=== PATIENT | male | born 1955 | race Caucasian/White ===

== ENCOUNTER 2024-05-09 07:40 | Day surgery (SDC) | payer MEDICARE, BC ==
[~2024-05-09] VITALS: Ht 175.3 cm; Wt 84.1 kg
[~2024-05-09 07:40] MED LIST: ALLERGY RELIEF10 M1 PO; BACTRIM 400-801 EACH PO; BACTRIM DS TAB1 EACH PO; FLUTICASONE P15.8 ML NS; HYDROCODON-ACE1 EA10 PO; IBLOOD GLUCOSE TEST STRIP 1 EA TEST VI PRN; IBUPROFEN200 M1; KEFLEX500 MG PO; KETOROLAC TROME10 MG PO; LACTATED RINGER'S 1,000 ML IV SCH; LIDOCAINE HCL 1% 5 ML SDV INJ ONE; MIDAZOLAM HCL 5 MG/5 ML VIAL IV PRN; OXYCODONE-ACET1 EAC1 PO; fentaNYL citrate 100 MCG/2 ML VIAL IV PRN
[2024-05-09 07:55] VITALS: BP 121/74
[2024-05-09] MEDS ORDERED: ADVAIR 250-501 EACH INH (08:00)
[2024-05-09] MEDS ORDERED: fentaNYL citrate 100 MCG/2 ML VIAL ONE (09:28)
[2024-05-09] MEDS ORDERED: MIDAZOLAM HCL 5 MG/5 ML VIAL ONE (09:28)
--- NOTE | 2024-05-09 10:27 | NUR ---
05/09/24 Hermann7 Lula Armijo 1017- PT ARRIVES TO THE PACU WITH A NATURAL AIRWAY ON 3L OF O2 VIA NC. BREATHING IS EVEN AND UNLABORED. ALL MONITORS PUT IN PLACE. ABDOMEN IS SOFT AND NONDISTENDED. VSS. LR IS INFUSING IN THE IV IN HIS R AC. PT IS LAYING ON HIS LEFT SIDE. PT HAS EYES OPEN. PT IS ORIENTED TO THE PACU. PT IS ENCOURAGED TO PASS GAS AND EDUCATED ABOUT THE PROCEDURE. PT DENIES PAIN AND NAUSEA. PT AMBROCIO FALLS BACK TO SLEEP. 1019- PT PASSING GAS OFF AND ON. PT IS RESTING WITH NO APPARENT DISTRESS.
[2024-05-09 11:04] VITALS: BP 107/68
--- NOTE | 2024-05-09 11:38 | OR ---
[facility] [address] [place] [address], [place] [address] Signed DATE OF OPERATION: 05/09/2024 SURGEON: Patrick Bobo MD PREOPERATIVE DIAGNOSIS: Colon screening. POSTOPERATIVE DIAGNOSES: 1. Sigmoid and left-sided diverticulosis. 2. Polyps x3. PROCEDURES: Total colonoscopy to cecum with cold morcellation polypectomy x3. ANESTHESIA: Intravenous sedation, fentanyl 100 mcg and Versed 5 mg. INDICATIONS FOR THE PROCEDURE: This 68-year-old white man is a patient of Dr. Nikolas Irene. He last underwent colonoscopy by me in 2013, which was normal except for diverticulosis. He has no current symptoms of bleeding, diarrhea, or constipation. He has had some rectal bleeding in the past several months, but that has resolved. He is admitted at this time to undergo colonoscopy. He understands the risk of bleeding, infection, and perforation. FINDINGS: A polyp was noted in the rectum, rectosigmoid, and the cecum, all of them small. Diverticula were noted densely through the sigmoid and left colon. There was no evidence of malignancy or colitis. DESCRIPTION OF PROCEDURE: The patient was brought to the endoscopy suite and placed in the lateral decubitus position given intravenous sedation to the point of slurred speech and nystagmus. Digital rectal examination was normal. An Olympus video colonoscope was passed into the rectum, immediately noting an adenomatous-appearing polyp, which was removed with cold morcellation technique. The scope was advanced into the sigmoid, where numerous diverticula were seen. Passage throughout the colon was ultimately accomplished fully intubating the cecum itself. The ileocecal valve and appendiceal orifice were normal. Irrigation was undertaken and with Electronically Signed By: PATRICK BOBO MD 05/09/24 1138 PATIENT NAME: ROGER BOWEN OPERATIVE REPORT DATE OF : 59 REPORT #: [id number] PHYSICIAN: PATRICK BOBO MD PCP: NIKOLAS IRENE MD REPORT IS CONFIDENTIAL AND NOT TO BE RELEASED WITHOUT AUTHORIZATION [facility] [address] [place] [address], [place] [address] Signed the aid of narrow-band imaging, a small polyp of the cecum was noted, this was excised with cold morcellation technique. Scope was then withdrawn. Examination throughout undertaken showing only diverticulosis of the left colon and sigmoid until the rectosigmoid, rather a small polyp was noted affirmed in its characteristics by narrow-band imaging also. It too was excised with cold morcellation technique. The scope was withdrawn. Retroflexed view of the rectum was normal. The scope was removed fully. The patient was taken to the recovery room in good condition. CONCLUDING DIAGNOSIS: Polyps x3 and diverticulosis. PLAN: Recommend repeat colonoscopy in 5-7 years based on current findings. We would recommend high-fiber diet as well. He will return to the ongoing care of Dr. Irene. MD CHEMO Caballero/ARLEY /[id number] cc: Nikolas Irene MD Copies: NIKOLAS IRENE MD ~ Electronically Signed By: PATRICK BOBO MD 05/09/24 1138 PATIENT NAME: JESSIROGERBERT OPERATIVE REPORT DATE OF : 59 REPORT #: [id number] PHYSICIAN: PATRICK BOBO MD PCP: NIKOLAS IRENE MD REPORT IS CONFIDENTIAL AND NOT TO BE RELEASED WITHOUT AUTHORIZATION
--- NOTE | 2024-05-13 10:08 | PATH ---
[facility] [address], [place] [address] Signed SPECIMEN(S): A RECTAL POLYP SPECIMEN(S): B CECUM POLYP SPECIMEN(S): C RECTOSIGMOID POLYP SPECIMEN SOURCE: A. RECTAL POLYP B. CECUM POLYP C. RECTOSIGMOID POLYP CLINICAL HISTORY: Pre-: 2013 extensive diverticulosis recent rectal bleeding. Post: Diverticulosis and polyps x 3 FINAL PATHOLOGIC DIAGNOSIS: A. Rectum, polypectomy: - Hyperplastic polyp B. Cecum, polypectomy: - Colonic mucosa with no significant pathologic changes C. Colon, rectosigmoid, polypectomy: - Hyperplastic polyp BRP MICROSCOPIC EXAMINATION: Histologic sections of all submitted blocks are examined by light microscopy. These findings, together with the gross examination, support the pathologic diagnosis. GROSS DESCRIPTION: A. The specimen, labeled and designated "Lei, Carolann, rectal polyp," is received in formalin and consists of five peters soft tissue fragments, ranging from 0.2-0.4 cm. Entirely submitted in (A1). B. The specimen, labeled and designated "Lei, Carolann, cecum polyp," is received in formalin and consists of five peters soft tissue fragments, ranging from 0.2-0.3 cm. Entirely submitted in (B1). C. The specimen, labeled and designated "Lei, J, rectosigmoid polyp," is received in formalin and consists of four peters soft tissue fragments, ranging from 0.1-0.3 cm. Entirely submitted in (C1). AB (under the direct supervision of a pathologist) The Gross Description was prepared using a voice recognition system. The report was reviewed for accuracy; however, sound-alike word errors, addition and/or deletions may occur. If there is any PATIENT NAME: ROGER BOWEN PATHOLOGY DATE OF : 59 REPORT #: [id number] PHYSICIAN: AYANA MISTRY PCP: NIKOLAS GRIMALDO MD REPORT IS CONFIDENTIAL AND NOT TO BE RELEASED WITHOUT AUTHORIZATION [facility] [address], [place] [address] Signed question about this report, please contact Client Services. ADDITIONAL NOTES: Immunohistochemical and/or in situ hybridization studies if performed in this case included appropriate positive controls that reacted as expected. This test was developed and its performance characteristics determined by [facility]. It has not been cleared or approved by the U.S. Food and Drug Administration. The FDA has determined that such clearance or approval is not necessary. This test is used for clinical purposes. It should not be regarded as investigational or for research. [facility] is certified under the Clinical Laboratory Improvement Amendments of 1988 (CLIA) as qualified to perform high complexity clinical laboratory testing. PERFORMING LABORATORY: Technical component was performed by [facility], [address] [place] [address] (CLIA# [id number]). Professional interpretation was performed by [facility] [address] [place] [id number] Diagnostician: Zenon Almaraz MD Pathologist Electronically Signed 05/13/2024 Copies: ~ PATIENT NAME: ROGER BOWEN PATHOLOGY DATE OF : 59 REPORT #: [id number] PHYSICIAN: AYANA PATHOLOGY PCP: NIKOLAS GRIMALDO MD REPORT IS CONFIDENTIAL AND NOT TO BE RELEASED WITHOUT AUTHORIZATION
== END 2024-05-09 10:55 | disposition home or self-care (01) ==
LOC: DS 07:40 → OPS 07:40 → DS 09:00 → OPS 10:55
PROVIDERS: ATTEND Surgery
PROC: 0DBP8ZZ Excision of Rectum, Via Natural or Artificial Opening Endoscopic (ICD-10-PCS; 2024-05-09)
PROC: 0DBH8ZZ Excision of Cecum, Via Natural or Artificial Opening Endoscopic (ICD-10-PCS; principal; 2024-05-09 09:00)
DX: Z12.11 Encounter for screening for malignant neoplasm of colon (principal); K63.5 Polyp of colon; K62.1 Rectal polyp; K57.30 Diverticulosis of large intestine without perforation or abscess without bleeding; J45.909 Unspecified asthma, uncomplicated; Z88.0 Allergy status to penicillin; Z91.048 Other nonmedicinal substance allergy status; Z79.899 Other long term (current) drug therapy; Z90.49 Acquired absence of other specified parts of digestive tract; Z87.19 Personal history of other diseases of the digestive system
CPT/HCPCS: 99153; G0500; J2250; J3010; J7121